=== PATIENT | female | born 1945 | race Caucasian/White ===

== ENCOUNTER 2017-08-25 10:01 | Outpatient (CLI) | payer OTHER ==
[~2017-08-25 10:01] MED LIST: CALAN SR 240 MG PO; CALAN SR120 MG; CIPRO500 MG PO; COZAAR50 MG; COZAAR50 MG PO; FLONASE16 GM NS; INTESTINEX680 MG PO; MACRODANTIN100 M1 PO; ORALSEP BC; PROVENTIL3 ML/2.5 M IH; URIN D.S. TABLE1 TAB PO; ZITHROMAX200 MG PO; ZYRTEC10 MG PO
== END 2017-08-25 17:00 | disposition home or self-care (01) ==
LOC: MAMO-SONO 10:01
DX: N63.11 Unspecified lump in the right breast, upper outer quadrant (principal); N20.0 Calculus of kidney; R31.9 Hematuria, unspecified

== ENCOUNTER 2017-08-25 11:10 | Outpatient (CLI) | payer OTHER | END 2017-08-25 17:00 | disposition home or self-care (01) | LOC: RAD 11:10 | DX: N20.0 Calculus of kidney (principal); R31.9 Hematuria, unspecified ==

== ENCOUNTER 2017-08-29 09:03 | Outpatient (CLI) | payer OTHER | END 2017-08-29 09:08 | disposition home or self-care (01) | LOC: NUCLEAR 09:03 | DX: I10 Essential (primary) hypertension (principal); M81.0 Age-related osteoporosis without current pathological fracture; M54.5 Low back pain; E55.9 Vitamin D deficiency, unspecified; G62.9 Polyneuropathy, unspecified; K21.9 Gastro-esophageal reflux disease without esophagitis ==

== ENCOUNTER 2018-02-25 10:21 | Outpatient (CLI) | payer OTHER | END 2018-02-25 11:00 | disposition home or self-care (01) | LOC: MAMO-SONO 10:21 | DX: Z12.31 Encounter for screening mammogram for malignant neoplasm of breast (principal); N63.11 Unspecified lump in the right breast, upper outer quadrant; N63.12 Unspecified lump in the right breast, upper inner quadrant ==

== ENCOUNTER 2018-05-21 09:41 | Outpatient (CLI) | payer OTHER | END 2018-05-21 10:03 | disposition home or self-care (01) | LOC: SONOGRAMA 09:41 → MAMO-SONO 10:15 | DX: R31.9 Hematuria, unspecified (principal) ==

== ENCOUNTER 2018-10-01 10:26 | Outpatient (CLI) | payer OTHER | END 2018-10-01 12:50 | disposition home or self-care (01) | LOC: SONOGRAMA 10:26 → MAMO-SONO 10:45 → SONOGRAMA 12:50 | DX: N63.11 Unspecified lump in the right breast, upper outer quadrant (principal) ==

== ENCOUNTER 2018-11-18 10:57 | Outpatient (CLI) | payer OTHER | END 2018-11-18 14:32 | disposition home or self-care (01) | LOC: RAD 10:57 | DX: M54.5 Low back pain (principal); E78.89 Other lipoprotein metabolism disorders; D86.0 Sarcoidosis of lung ==

== ENCOUNTER 2019-02-02 09:53 | Outpatient (CLI) | payer OTHER | END 2019-02-02 11:13 | disposition home or self-care (01) | LOC: SONOGRAMA 09:53 | DX: N20.0 Calculus of kidney (principal); R31.29 Other microscopic hematuria ==

== ENCOUNTER 2019-04-06 10:14 | Outpatient (CLI) | payer OTHER | END 2019-04-06 10:17 | disposition home or self-care (01) | LOC: MAMO-SONO 10:14 | DX: D24.1 Benign neoplasm of right breast (principal); Z12.31 Encounter for screening mammogram for malignant neoplasm of breast; Z87.898 Personal history of other specified conditions ==

== ENCOUNTER 2019-10-05 11:00 | Outpatient (CLI) | payer OTHER | END 2019-10-05 12:18 | disposition home or self-care (01) | LOC: SONOGRAMA 11:00 | DX: R10.10 Upper abdominal pain, unspecified (principal) ==

== ENCOUNTER → 2020-04-25 | Outpatient (CLI) | payer OTHER | END | disposition home or self-care (01) | LOC: MAMO-SONO 09:45 | PROVIDERS: ATTEND Specialist | DX: D24.1 Benign neoplasm of right breast (principal) ==

== ENCOUNTER 2021-01-05 13:03 | Outpatient (CLI) | payer OTHER | END 2021-01-05 13:04 | disposition home or self-care (01) | LOC: NUCLEAR 13:03 | PROVIDERS: ATTEND Internal Medicine | DX: M54.5 Low back pain (principal); M81.0 Age-related osteoporosis without current pathological fracture ==

== ENCOUNTER → 2021-01-05 | Outpatient (CLI) | payer OTHER | END | disposition home or self-care (01) | LOC: SONOGRAMA 11:52 | PROVIDERS: ATTEND Urology | DX: N20.0 Calculus of kidney (principal) ==

== ENCOUNTER → 2021-05-24 | Outpatient (CLI) | payer OTHER | END | disposition home or self-care (01) | LOC: MAMO-SONO 12:19 | PROVIDERS: ATTEND Specialist | DX: N60.82 Other benign mammary dysplasias of left breast (principal); Z12.31 Encounter for screening mammogram for malignant neoplasm of breast ==

== ENCOUNTER 2022-01-07 08:27 | Outpatient (CLI) | payer OTHER | END 2022-01-07 08:33 | disposition home or self-care (01) | LOC: SONOGRAMA 08:27 | PROVIDERS: ATTEND Urology | DX: R31.1 Benign essential microscopic hematuria (principal); N20.0 Calculus of kidney; N30.00 Acute cystitis without hematuria ==

== ENCOUNTER 2023-01-08 10:55 | Outpatient (CLI) | payer OTHER | END 2023-01-08 11:02 | disposition home or self-care (01) | LOC: SONOGRAMA 10:55 | PROVIDERS: ATTEND Specialist | DX: N20.0 Calculus of kidney (principal); N30.00 Acute cystitis without hematuria; R31.1 Benign essential microscopic hematuria ==

== ENCOUNTER 2023-01-31 07:13 | Outpatient (CLI) | payer OTHER | END 2023-01-31 07:15 | disposition home or self-care (01) | LOC: NUCLEAR 07:13 | PROVIDERS: ATTEND Internal Medicine | DX: I25.118 Atherosclerotic heart disease of native coronary artery with other forms of angina pectoris (principal); I11.9 Hypertensive heart disease without heart failure; I44.7 Left bundle-branch block, unspecified | CPT/HCPCS: 78452; 93017; A9500; J0153 ==

== ENCOUNTER 2023-04-09 08:29 | Outpatient (CLI) | payer OTHER | END 2023-04-09 08:33 | disposition home or self-care (01) | LOC: SONOGRAMA 08:29 | PROVIDERS: ATTEND Specialist | DX: Z09 Encounter for follow-up examination after completed treatment for conditions other than malignant neoplasm (principal); Z98.890 Other specified postprocedural states ==

== ENCOUNTER 2023-07-30 08:33 | Outpatient (CLI) | payer OTHER | END 2023-07-30 08:34 | disposition home or self-care (01) | LOC: NUCLEAR 08:33 | PROVIDERS: ATTEND Internal Medicine Cardiovascular Disease | DX: I87.2 Venous insufficiency (chronic) (peripheral) (principal); I73.9 Peripheral vascular disease, unspecified ==

== ENCOUNTER → 2023-08-06 10:27 | Outpatient (CLI) | payer OTHER | END | disposition home or self-care (01) | LOC: NUCLEAR 07-31 09:00 | PROVIDERS: ATTEND Internal Medicine | DX: I87.2 Venous insufficiency (chronic) (peripheral) (principal); I73.9 Peripheral vascular disease, unspecified ==

== ENCOUNTER 2023-09-26 12:39 | Outpatient (CLI) | payer OTHER | END 2023-09-26 12:41 | disposition home or self-care (01) | LOC: NUCLEAR 12:39 | PROVIDERS: ATTEND Internal Medicine | DX: Z13.820 Encounter for screening for osteoporosis (principal); M81.0 Age-related osteoporosis without current pathological fracture ==

== ENCOUNTER 2023-10-22 09:57 | Outpatient (CLI) | payer OTHER | END 2023-10-22 10:03 | disposition home or self-care (01) | LOC: MAMO-SONO 09:57 | PROVIDERS: ATTEND Specialist | DX: D24.1 Benign neoplasm of right breast (principal); Z12.31 Encounter for screening mammogram for malignant neoplasm of breast ==

== ENCOUNTER 2024-02-09 10:27 | Outpatient (CLI) | payer OTHER | END 2024-02-09 10:34 | disposition home or self-care (01) | LOC: SONOGRAMA 10:27 | PROVIDERS: ATTEND Urology | DX: N20.0 Calculus of kidney (principal) ==

== ENCOUNTER 2024-04-27 06:17 | Day surgery (SDC) | payer OTHER ==
[2024-04-22 09:20] LABS: HEMATOCRIT 43.9 % (36.0-45.00); HEMOGLOBIN 15.1 g/dL (12.0-15.00); MEAN CELL VOLUME 91.4 fL (80.00-100.00); MEAN CORPUSCULAR HEMOGLOBIN 31.4 pg (27.00-32.0); MEAN CORPUSCULAR HGB CONC 34.4 g/dl (32.0-36.0); PLATELET COUNT 283 K/uL (150-450); RED CELL DISTRIBUTION WIDTH 14.2 % (11.5-14.5)
[2024-04-22 09:28] LABS: URINE APPEARANCE Clear; URINE BILIRRUBIN Negative (NEGATIVE); URINE BLOOD Negative; URINE COLOR Yellow; URINE GLUCOSE Negative (NEGATIVE); URINE KETONE Negative (NEGATIVE); URINE LEUKOCYTE Trace; URINE NITRATE Negative; URINE PROTEIN Negative (NEGATIVE); URINE UROBILINOGEN 0.2 E.U./dl
[2024-04-22 09:29] LABS: URINE BACTERIA 21.3 uL (0.0-1933); URINE EPITHELIAL CELLS 2.1 uL (0.0-38.8); URINE WBC 6.7 uL (0.0-23.2)
[2024-04-22 09:46] LABS: URINE RBC 1.5 uL (0.0-20.8)
[2024-04-22 09:48] LABS: INR 1.01; PARTIAL THROMBOPLASTIN TIME 30.3 SECONDS (22.0-34.0)
[2024-04-22 11:06] LABS: ALBUMIN 4.3 gm/dL (3.4-5.0); BILIRUBIN TOTAL 0.83 mg/dL (0.3-1.2); CALCIUM 9.8 mg/dL (8.5-10.1); CREATININE SERUM 0.61 mg/dL (0.55-1.02); GFR 94.86; GLOBULINA 3.1 G/DL (2.4-3.5); POTASSIUM 3.93 mEq/L (3.5-5.1); TOTAL PROTEIN 7.4 gm/dL (6.4-8.2)
[~2024-04-27 06:17] MED LIST changes: +PEPCID AC20 MG
[2024-04-27] MEDS ORDERED: CIPROFLOXACIN IN 5 % DEXTROSE 400 MG/200 ML PIGGYBAG IV ONE (12:30)
[2024-04-27] MEDS ORDERED: FAMOTIDINE/PF 20 MG/10 ML SYRINGE IV SCH (14:00)
[2024-04-27] MEDS ORDERED: MORPHINE SULFATE 2 MG/ML CARTRIDGE IV ONE (14:20)
== END 2024-04-27 16:10 | disposition home or self-care (01) ==
LOC: CIR.AMB 06:17
PROVIDERS: ATTEND Specialist
DX: C50.512 Malignant neoplasm of lower-outer quadrant of left female breast (principal); R59.0 Localized enlarged lymph nodes; D48.62 Neoplasm of uncertain behavior of left breast; I10 Essential (primary) hypertension; Z91.040 Latex allergy status; Z91.013 Allergy to seafood

== ENCOUNTER 2024-06-17 07:27 | Outpatient (CLI) | payer OTHER | END 2024-06-17 07:28 | disposition home or self-care (01) | LOC: NUCLEAR 07:27 | PROVIDERS: ATTEND Internal Medicine Hematology & Oncology | DX: C50.412 Malignant neoplasm of upper-outer quadrant of left female breast (principal) | CPT/HCPCS: 78815; A9552 ==

== ENCOUNTER 2025-03-23 09:45 | Outpatient (CLI) | payer OTHER | END 2025-03-23 09:51 | disposition home or self-care (01) | LOC: SONOGRAMA 09:45 | PROVIDERS: ATTEND Urology | DX: N20.0 Calculus of kidney (principal) ==

== ENCOUNTER 2025-05-18 09:58 | Outpatient (CLI) | payer OTHER | END 2025-05-18 09:59 | disposition home or self-care (01) | LOC: MAMO-SONO 09:58 | PROVIDERS: ATTEND Specialist | DX: Z85.3 Personal history of malignant neoplasm of breast (principal); Z12.31 Encounter for screening mammogram for malignant neoplasm of breast ==